=== PATIENT | male | born 1955 | race Caucasian/White ===

== ENCOUNTER → 2017-10-15 | Outpatient (CLI) | payer BC ==
[~2017-10-15] MED LIST: ALBU1AER INH; ASPI-146 PO; COMMODE 3-IN-11 MIS; ENOX40IN SQ; FLAX1000 PO; FLUTI44I INH; NORC5TAB PO; VENTAER INH; WALKER WHEELS/F1 MIS; [UNRECOGNIZED DRUG - CODE] INH
== END ==
LOC: CPRE 11:20
PROVIDERS: ATTEND Orthopaedic Surgery
DX: M16.11 Unilateral primary osteoarthritis, right hip (principal)

== ENCOUNTER 2017-10-27 05:31 | Inpatient (IN) | payer BC ==
[~2017-10-27] VITALS: Ht 185.4 cm; Wt 89.7 kg
[~2017-10-27 05:31] MED LIST changes: -ASPI-146 PO; -COMMODE 3-IN-11 MIS; -ENOX40IN SQ; -NORC5TAB PO; -WALKER WHEELS/F1 MIS
[2017-10-27] MEDS ORDERED: HYDROmorphone HCL PF 2 MG/ML VIAL ONE (05:52)
[2017-10-27] MEDS ORDERED: ACETAMINOPHEN 1000 MG/100 ML 100 ML IV ONE (05:52)
[2017-10-27] MEDS ORDERED: POVIDONE IODINE 5% (ANTISEPSIS KIT) 4 APPLICATIONS EACH NARE PRN (06:00)
[2017-10-27] MEDS ORDERED: SODIUM CHLORID 0.9% 500 ML IV PRN (06:00)
[2017-10-27] MEDS ORDERED: METOPROLOL TARTRATE 25 MG TAB PO PRN (06:00)
[2017-10-27] MEDS ORDERED: VANCOMYCIN 1000 MG/NS 250 ML (for <70 kg) IV SCH ×2 (06:00)
[2017-10-27] MEDS ORDERED: DEXAMETHASONE SOD PHOS 20 MG/5 ML VIAL IV SCH (06:00)
[2017-10-27] MEDS ORDERED: LACTATED RINGER'S 1000 ML IV PRN (06:00)
[2017-10-27] MEDS ORDERED: ceFAZolin 2 GM PREMIX 50 ML IV SCH (06:00)
[2017-10-27] MEDS ORDERED: INSULIN HUMAN REGULAR 1,000 UNITS/10 ML VIAL SQ PRN (06:00)
[2017-10-27] MEDS ORDERED: POVIDONE IODINE 7.5% SCRUB 118 ML BOTTLE TOPICAL SCH (06:00)
[2017-10-27] MEDS ORDERED: CHLORHEXIDINE GLUCONATE 2 % 1 PACK (2 CLOTHS) TOPICAL PRN (06:00)
[2017-10-27] MEDS ORDERED: GENTAMICIN SULFATE 80 MG/2 ML VIAL ONE (06:20)
--- NOTE | 2017-10-27 06:47 | HHI.DCPOC ---
Discharge Care Plan Diagnosis: (1) Osteoarthritis of right hip (2) Status post total hip replacement, right Your Health Problems Are: Difficulty with ADL Goals to Promote Your Health * To prevent worsening of your condition and complications * To maintain your health at the optimal level Directions to Meet Your Goals Take your medications as prescribed Follow your dietary instruction Follow activity as directed Keep your appointments as scheduled Take your immunizations and boosters as scheduled If your symptoms worsen call your PCP, if no PCP go to Urgent Care Center or Emergency Room Smoking is Dangerous to Your Health. Avoid second hand smoke Call the 24-hour hour crisis hotline for domestic abuse at Jass Springer Oct 27, 2017 06:47
--- NOTE | 2017-10-27 06:51 | HHI.FF ---
Face to Face Verification Diagnosis: (1) Osteoarthritis of right hip (2) Status post total hip replacement, right Physical Therapy Gait training, Transfer training, bed to chair Hip: Total hip Right LE Weight Bearing: WB as tolerated Right LE Range of Motion: Active ROM Nursing Nursing: Audi guillaume Dressing Changes: Do not change dressing Additional Instructions First dressing change in the office I have seen patient German Lopez on 10/27/17. My clinical findings support the need for the requested home health care services because: Limited ability to care for self High risk of falls I certify that my clinical findings support that this patient is homebound because: Post-op weakness Unsteady gait/balance Jass Springer Oct 27, 2017 06:51
[2017-10-27] MEDS ORDERED: COMMODE 3-IN-11 MIS (06:53)
[2017-10-27] MEDS ORDERED: WALKER WHEELS/F1 MIS (06:53)
[2017-10-27] MEDS ORDERED: EXPAREL PERI-ARTICULAR INJECTION (TOTAL VOL. 60 ML) P-ARTICULR SCH ×2 (07:00)
[2017-10-27] MEDS ORDERED: TRANEXAMIC ACID INJ 875 MG in SODIUM CHLORIDE 0.9% INJ 100 ML IV SCH ×2 (07:00→10:00)
--- NOTE | 2017-10-27 08:35 | PD.OP ---
cc: Bala Sanchez MD Operative Report Date of Surgery: Oct 27, 2017 Preoperative Diagnosis: Right hip severe osteoarthritis Postoperative Diagnosis: Same Procedure: Right total hip arthroplasty Anesthesia: Gen. Surgeon: Bala Sanchez [employer] Department Chair(s): KIERA Ray The surgical procedure was assisted by my Advanced Registered Nurse Practitioner. My PROFESSOR OF PHYSICAL EDUCATION presence was necessary throughout this case for the manipulation and positioning of the surgical extremity. My PROFESSOR OF PHYSICAL EDUCATION was assisting me throughout the duration of this procedure. The skill set of an Advance Registered Nurse Practitioner was medically necessary to complete this procedure. During the surgical case, the patient services technician was working at the back table and the Advance Registered Nurse Practitioner was directly assisting me. Operation and Findings: IMPLANT DESCRIPTION: 1. [place] Gription Cup, acetabular size 54. 2. [place] AltrX polyethylene, neutral. 4. [place] femoral stem size 13, no collar, standard offset. 5. Femoral head/neck ceramic, 36, +1.5. ESTIMATED BLOOD LOSS: 200 cc. JUSTIFICATION FOR PROCEDURE: The patient has end-stage osteoarthritis to the hip. There is an attached conservative measures pathway form in the chart that describes the nonoperative measures that were undertaken prior to consideration of surgical management. The patient understood the risks and benefits of surgical management. See my office notes for further details. PROCEDURE: The patient was brought back to the operative theatre. Adequate anesthesia was obtained. The patient received intravenous vancomycin and Ancef. The patient was carefully placed on the operative table. The lower extremity was prepped and draped in the usual sterile fashion. Fluoroscopic images were obtained. We made a standard anterior incision over the hip. We dissected through the TFL fascia, exposing the anterior capsule. Arthrotomy was performed in a T-shaped fashion. The capsule was tagged with a #2 FiberWire. End-stage arthritis was identified. Osteotomy was performed through the femoral neck exposing the acetabulum. Remnants of the labrum were resected and osteophytes were removed. We sequentially reamed the acetabulum. We trialed the hip and placed the final cup into position. This was done under fluoroscopic guidance to obtain the appropriate inclination and anteversion. A manhole cover was placed into the acetabular component. We then placed the final polyethylene into position and confirmed that it was well seated. Capsular attachments on the calcar and the inner aspect of the greater trochanter were resected. On the proximal aspect of the femur we used a rongeur , box osteotome, canal finder, sequential broaches and lateralizing rasp. We calcar planed the proximal femur. Then thoroughly irrigated the wound. We trialed the hip with the appropriate size stem. We placed the final stem in to position and trialed again. The hip was stable while it was externally rotated 70 degrees when the leg was lowered to the floor. The final head was applied, and final fluoroscopic images were obtained. The wound was thoroughly irrigated again. Interarticular injection of liposomal bupivacaine was given. The capsule was closed with #2 FiberWire and #1 Vicryl. The deep fascia was closed with a #2 Stratafix, followed by 2-0 Vicryl in the skin and Dermabond dressing. Postop plan is to weight-bear as tolerated. DVT prophylaxis will be performed with Frank, JAYLYN gonzalez, early mobilization, and Lovenox followed by aspirin. Bala Sanchez MD Oct 27, 2017 08:35
[2017-10-27] MEDS ORDERED: NORC5TAB PO (08:37)
[2017-10-27] MEDS ORDERED: ENOX40IN SQ (08:37)
[2017-10-27] MEDS ORDERED: ASPI-146 PO (08:37)
[2017-10-27] MEDS ORDERED: diphenhydrAMINE HCL 50 MG/ML VIAL IV PUSH PRN (08:45)
[2017-10-27] MEDS ORDERED: BISACODYL 10 MG SUPP RECTAL PRN (08:45)
[2017-10-27] MEDS ORDERED: ALUMINUM/MAGNESIUM/SIMETH 30 ML CUP PO PRN (08:45)
[2017-10-27] MEDS ORDERED: NALOXONE HCL 0.4 MG/ML AMP IV PUSH PRN (08:45)
[2017-10-27] MEDS ORDERED: ZOLPIDEM TARTRATE 5 MG TAB PO PRN (08:45)
[2017-10-27] MEDS ORDERED: ACETAMINOPHEN/HYDROcodone 325 MG/5 MG TAB PO PRN (08:45)
[2017-10-27] MEDS ORDERED: MAGNESIUM HYDROXIDE SUSP 30 ML CUP PO PRN (08:45)
[2017-10-27] MEDS ORDERED: ONDANSETRON HCL 4 MG/2 ML VIAL IVP PRN (08:45)
[2017-10-27] MEDS ORDERED: Post-op Orders (for Pharmacy) XX ONE (08:57)
[2017-10-27] MEDS ORDERED: DO NOT ADM ANY ANTICOAGULANT DRUGS PRN (08:57)
[2017-10-27] MEDS: SODIUM CHLOR 0.9% 1000 ML INJ 1,000 ML IV SCH (09:00)
[2017-10-27] MEDS: FLUTICASONE PROPIONATE 44 MCG/ACT 10.6 GM INHALER INH SCH (09:00)
[2017-10-27] MEDS ORDERED: *morphine SULFATE 8 MG/ML PERIprocedure ONLY ONE ×3 (09:11→09:43)
--- NOTE | 2017-10-27 09:46 | RADRPT ---
EXAM DATE/TIME: 10/27/2017 07:08 [facility] COMPARISON: No previous studies available for comparison. INDICATIONS : Right total hip replacement. MEDICAL HISTORY : None. SURGICAL HISTORY : None. ENCOUNTER: Initial ACUITY: 1 day PAIN SCORE: Non-responsive. LOCATION: Right Hip CONCLUSION: Fluoroscopic images right hip demonstrates right hip arthroplasty. No hardware loosen ing or new fracture. Brodie Nicole MD on October 27, 2017 at 9:44 Board Certified Radiologist. This report was verified electronically.
[2017-10-27] MEDS ORDERED: *HYDROmorphone PF 1 MG VIAL PERIprocedural Use ONLY ONE (09:56)
--- NOTE | 2017-10-27 10:04 | RADRPT ---
EXAM DATE/TIME: 10/27/2017 09:32 [facility] COMPARISON: HIP RIGHT (AP&LAT 2/3VWS) WO AP PELVIS, October 27, 2017, 7:08. INDICATIONS : Post op right hip surgery MEDICAL HISTORY : None. SURGICAL HISTORY : None. ENCOUNTER: Initial ACUITY: 1 day PAIN SCORE: 10/10 LOCATION: Right hip and pelvis FINDINGS: The patient is post right hip arthroplasty. Orthopedic hardware is in excellent position. The alignme nt is good. The osseous structures are otherwise intact. CONCLUSION: The right hip arthroplasty is in excellent position. Jass Estrella MD on October 27, 2017 at 10:01 Board Certified Radiologist. This report was verified electronically.
[2017-10-27 13:21] VITALS: BP 133/81; PULSE 90; RESP 18; TEMP 96.6; O2SAT 94
[2017-10-27] MEDS: MORPHINE SULFATE 4 MG/ML INJ IV PUSH PRN (13:22)
--- NOTE | 2017-10-27 14:17 | PD.CONS ---
HPI Service [facility] Consult Requested By Primary Care Physician Alvin Jeffery MD Diagnoses: History of Present Illness Mr. Lopez is a 62-year-old male. He came in for a right hip replacement surgery. He has osteoarthritis at baseline and has had a couple injuries of his right hip. At baseline he has asthma but no other medical conditions. He takes albuterol on as as-needed basis and fluticasone on a daily basis for maintenance. At this point he has no exacerbations of his asthma. He has been ambulatory postop and is doing well thus far. No medical concerns. Review of Systems Constitutional: DENIES: Diaphoretic episodes, Fever, Chills, Night Sweats Eyes: DENIES: Blurred vision, Diplopia, Eye inflammation Ears, nose, mouth, throat: DENIES: Tinnitus, Hearing loss, Vertigo Respiratory: DENIES: Cough, Wheezing, Shortness of breath Cardiovascular: DENIES: Chest pain, Palpitations, Syncope Gastrointestinal: DENIES: Abdominal pain, Black stools, Bloody stools Musculoskeletal: COMPLAINS OF: Joint pain, Stiffness, DENIES: Muscle aches Integumentary: DENIES: Abnormal pigmentation, Nail changes, Pruritus, Rash Hematologic/lymphatic: DENIES: Bruising, Lymphadenopathy Immunologic/allergic: DENIES: Eczema, Urticaria Neurologic: COMPLAINS OF: Abnormal gait, DENIES: Headache, Paresthesias Psychiatric: DENIES: Anxiety, Confusion, Hallucinations Past Family Social History Allergies: Coded Allergies: theophylline (Verified Adverse Reaction, Unknown, RAPID HEART RATE, ) Past Medical History Asthma Past Surgical History Right inguinal hernia repair Left inguinal hernia repair Right hip surgery (today) Reported Medications Reported Meds & Active Scripts Active Enoxaparin Inj (Enoxaparin Sodium) 40 Mg/0.4 Ml Syr 40 Mg SQ DAILY Start Aspirin after Lovenox is completed. Ecotrin Regular Strength (Aspirin) 325 Mg Tabdr 325 Mg PO DAILY Start Aspirin after Lovenox is completed. [place] (Hydrocodone-Acetaminophen) 5 Mg-325 Mg Tab 1-2 Tab PO Q4H PRN Reported Flaxseed Oil (Flaxseed (Linseed)) 1,000 Mg Cap 1,000 Cap PO TID Flovent Hfa 10.6 GM Inh (Fluticasone Propionate) 44 Mcg/Act Inh 1 Puff INH DAILY Use daily at the same time. Ventolin Hfa 18 GM Inh (Albuterol Sulfate) 90 Mcg/Act Aer 1 Puff INH Active Ordered Medications Administered Medications Medications (Trade) Dose Ordered Sig/Juliann Route PRN Reason Start Time Stop Time Status Last Admin Dose Admin Povidone Iodine (Betadine 5% Antisepsis Kit) 1 applic BUSINESS SERVICES DIRECTOR PRN EACH NARE SEE LABEL COMMENTS 10/27/17 06:00 10/30/17 05:59 10/27/17 06:00 Chlorhexidine Gluconate (Chlorhexidine 2% Cloth) 3 pack BUSINESS SERVICES DIRECTOR PRN TOPICAL SEE LABEL COMMENTS 10/27/17 06:00 10/30/17 05:59 10/27/17 05:50 Vancomycin HCl 1000 mg/Sodium Chloride 250 ml @ 250 mls/hr BUSINESS SERVICES DIRECTOR IV 10/27/17 06:00 10/30/17 05:59 10/27/17 06:25 Sodium Chloride 1,000 ml @ 100 mls/hr Q10H IV 10/27/17 08:32 10/27/17 09:00 Cefazolin Sodium 1000 mg/Sodium Chloride 100 ml @ 200 mls/hr Q6H IV 10/27/17 12:00 10/28/17 00:29 10/27/17 11:59 Morphine Sulfate (Morphine Inj) 2 mg Q3H PRN IV PUSH pain>5 IF NOT TOLERATING PO 10/27/17 08:45 10/27/17 13:22 Family History Alzheimer's disease in mother Social History No history of smoking No history of alcohol abuse No history of illicit drug abuse Physical Exam Vital Signs Vital Signs Date Time Temp Pulse Resp B/P (MAP) Pulse Ox O2 Delivery O2 Flow Rate FiO2 10/27/17 13:21 96.6 90 18 133/81 (98) 94 10/27/17 13:04 Nasal Cannula 2.00 10/27/17 12:15 97.8 90 16 107/69 (82) 95 Nasal Cannula 2 10/27/17 11:15 89 16 120/76 (91) 96 Nasal Cannula 2 10/27/17 10:15 81 16 98/57 (71) 94 Nasal Cannula 2 10/27/17 10:00 83 16 112/66 (81) 94 Nasal Cannula 3 10/27/17 09:45 81 16 116/65 (82) 95 Nasal Cannula 3 10/27/17 09:30 80 16 115/65 (82) 95 Nasal Cannula 3 10/27/17 09:15 81 16 114/69 (84) 95 Nasal Cannula 3 10/27/17 09:00 80 16 111/70 (84) 95 Nasal Cannula 3 10/27/17 08:56 97.9 82 16 110/68 (82) 90 Nasal Cannula 3 10/27/17 06:26 98.6 93 20 138/87 (104) 95 Physical Exam GENERAL: NAD, A&Ox3 HEAD: Normocephalic. NECK: Supple, trachea midline. No lymphadenopathy. EYES: No scleral icterus. No injection or drainage. CARDIOVASCULAR: Regular rate and rhythm without murmurs, gallops, or rubs. RESPIRATORY: Breath sounds equal bilaterally. No accessory muscle use. GASTROINTESTINAL: Abdomen soft, non-tender, nondistended. MUSCULOSKELETAL: No cyanosis, or edema. Bandaged right hip, limited range of motion of right hip postop. SKIN: Warm and dry. NEURO: No focal neurological deficitis. Imaging Last Impressions Hip and Pelvis X-Ray 10/27/17 0832 Signed Impressions: Service Date/Time: Friday, October 27, 2017 09:32 - CONCLUSION: The right hip arthroplasty is in excellent position. Jass Estrella MD Hip X-Ray 10/27/17 0000 Signed Impressions: Service Date/Time: Friday, October 27, 2017 07:08 - CONCLUSION: Fluoroscopic images right hip demonstrates right hip arthroplasty. No hardware loosening or new fracture. Brodie Nicole MD Assessment and Plan Problem List: (1) Status post total hip replacement, right ICD Code: Z96.641 - Presence of right artificial hip joint (2) Osteoarthritis of right hip ICD Code: M16.11 - Unilateral primary osteoarthritis, right hip Assessment and Plan Assessment and plan 62-year-old male admitted for right hip surgery Osteoarthritis of right hip Status post total hip replacement at right Continue pain treatments Orthopedic surgeon following Continue physical therapy Medically clear for discharge from the patient is cleared by orthopedic surgeon Asthma Stable No exacerbation Continue baseline treatments Medically clear for discharge Problem Qualifiers (1) Osteoarthritis of right hip: Qualified Codes: M16.11 - Unilateral primary osteoarthritis, right hip Jass Perez MD Oct 27, 2017 14:17
[2017-10-27 14:37] VITALS: O2SAT 94
[2017-10-27 16:00] VITALS: BP 139/66; PULSE 95; RESP 18; TEMP 96.6; O2SAT 94
[2017-10-27] MEDS ORDERED: ACETAMINOPHEN 325 MG TAB PO PRN (17:45)
[2017-10-27 19:47] VITALS: O2SAT 95
[2017-10-27 20:00] VITALS: BP 122/76; PULSE 89; RESP 18; TEMP 97.7; O2SAT 93
[2017-10-27] MEDS ORDERED: BENZOCAINE-MENTHOL (SUGAR FREE) 15 MG-3.6 MG LOZENGE BUCCAL PRN (20:15)
[2017-10-28 00:13] VITALS: BP 110/69; PULSE 90; RESP 18; TEMP 97.4; O2SAT 94
[2017-10-28] MEDS: MORPHINE SULFATE 4 MG/ML INJ IV PUSH PRN (00:17)
[2017-10-28] MEDS: SODIUM CHLOR 0.9% 1000 ML INJ 1,000 ML IV SCH ×3 (03:00→14:32)
[2017-10-28] MEDS: ACETAMINOPHEN/HYDROcodone 325 MG/5 MG TAB PO PRN ×3 (03:03→13:39)
[2017-10-28 04:16] VITALS: BP 130/75; PULSE 91; RESP 18; TEMP 97; O2SAT 94
[2017-10-28] MEDS ORDERED: DEXAMETHASONE SOD PHOS 20 MG/5 ML VIAL IV ONE (07:45)
[2017-10-28 08:00] VITALS: BP 116/71; PULSE 96; RESP 17; TEMP 97.7; O2SAT 94
[2017-10-28] MEDS ORDERED: ENOXAPARIN SODIUM 40 MG/0.4 ML SYRINGE SQ SCH (08:00)
[2017-10-28 08:04] LABS: HEMATOCRIT 35.4 % (39.0-51.0); MEAN CELL VOLUME 86.9 FL (80.0-100.0); MEAN CORPUSCULAR HEMOGLOBIN 28.8 PG (27.0-34.0); MEAN CORPUSCULAR HGB CONC 33.1 % (32.0-36.0); PLATELET COUNT 237 TH/MM3 (150-450); RED BLOOD COUNT 4.07 MIL/MM3 (4.50-5.90); RED CELL DISTRIBUTION WIDTH 14.4 % (11.6-17.2); REVIEW FLAG FINAL; WHITE BLOOD COUNT 10.4 TH/MM3 (4.0-11.0)
[2017-10-28] MEDS: FLUTICASONE PROPIONATE 44 MCG/ACT 10.6 GM INHALER INH SCH (09:00)
[2017-10-28 12:00] VITALS: BP 119/72; PULSE 95; RESP 17; TEMP 98; O2SAT 94
--- NOTE | 2017-10-28 12:57 | PD.ORT.PN ---
Subjective Post Op Day #: 1 Subjective Remarks The patient is OOB in chair with at bedside. Patient reports minimal pain and having to take minimal pain medication. Patient is ambulatory and wanting to go home with home health today. Objective Vitals Vital Signs Date Time Temp Pulse Resp B/P (MAP) Pulse Ox O2 Delivery O2 Flow Rate FiO2 10/28/17 12:00 98.0 95 17 119/72 (88) 94 10/28/17 08:00 97.7 96 17 116/71 (86) 94 10/28/17 04:16 97.0 91 18 130/75 (93) 94 10/28/17 00:13 97.4 90 18 110/69 (83) 94 10/27/17 20:00 97.7 89 18 122/76 (91) 93 10/27/17 19:47 95 21 10/27/17 16:00 96.6 95 18 139/66 (90) 94 10/27/17 14:37 94 Nasal Cannula 2.00 10/27/17 13:21 96.6 90 18 133/81 (98) 94 10/27/17 13:04 Nasal Cannula 2.00 I/O 10/27/17 10/27/17 10/27/17 10/28/17 10/28/17 10/28/17 07:00 15:00 23:00 07:00 15:00 23:00 Intake Total 1438 ml 240 ml 240 ml Output Total 150 ml Balance 1288 ml 240 ml 240 ml Intake Oral 480 ml 240 ml 240 ml IV Total 208 ml Other 750 ml Output Estimated Blood Loss 150 ml # Voids 1 3 2 # Bowel Movements 0 0 0 Result Diagram: 10/28/17 0653 Procedures Right JOVAN Objective Remarks The patient's dressing is C/D/I. EHL/TA/G intact. 2+ pedal pulse. + SILT. Calf is soft and nontender. Assessment & Plan Ortho Post Op Day #: 1 Problem List: Assessment and Plan POD #1: Right JOVAN 1. Lovenox followed by ASA for DVT prophylaxis 2. WBAT RLE 3. Ice to the right hip PRN 4. Stable for discharge home with home health today 5. F/U in the office with Dr. Sanchez or KIERA Santos as previously scheduled. Jass Springer Oct 28, 2017 12:56
[2017-10-28] MEDS ORDERED: MULTIVITAMINS/MINERALS THERAPEUTIC TAB PO SCH (21:00)
[2017-10-28] MEDS ORDERED: DOCUSATE SODIUM 100 MG CAP PO SCH (21:00)
--- NOTE | 2017-10-29 12:33 | HHI.DS ---
Discharge Summary Admission Date Oct 27, 2017 at 05:31 Discharge Date: Oct 28, 2017 Admitting Diagnosis OA of the right hip Status post total hip replacement, right Diagnosis: (1) Osteoarthritis of right hip Diagnosis: Principal ICD Codes: M16.11 - Unilateral primary osteoarthritis, right hip (2) Status post total hip replacement, right Diagnosis: Principal ICD Codes: Z96.641 - Presence of right artificial hip joint Procedures Right JOVAN Brief History This is a 62 year old male patient with severe OA of the right hip CBC/BMP: 10/28/17 0653 Significant Findings Laboratory Tests Test 10/28/17 06:53 Red Blood Count 4.07 MIL/MM3 (4.50-5.90) Hemoglobin 11.7 GM/DL (13.0-17.0) Hematocrit 35.4 % (39.0-51.0) Mean Platelet Volume 6.7 FL (7.0-11.0) PE at Discharge The patient's dressing is C/D/I. EHL/TA/G intact. 2+ pedal pulse. + SILT. Calf is soft and nontender. Hospital Course The patient was admitted to the hospital for severe OA of the right hip to have a right JOVAN. The patient's surgery went well without complication. The patient is WBAT. The patient is on a regular diet. The patient is on Lovenox followed by ASA for DVT prophylaxis. The patient was discharged home with home health and will f/u in the office with Dr. Sanchez or KIERA Santos as previously scheduled. Pt Condition on Discharge: Stable Discharge Disposition: Disch w/ Home Health Serv Discharge Instructions Diet Instructions: As Tolerated, No Restrictions Activities You Can Perform: Weight Bearing as Yudi Activities to Avoid: Strenuous Activity Follow up Referrals: Orthopedics with Bala Sanchez MD New Medications: Aspirin (Ecotrin Regular Strength) 325 Mg Tabdr 325 MG PO DAILY for Prevent Blood Clot, #30 TAB 0 Refills Start Aspirin after Lovenox is completed. Commode 3-in-1 (Commode 3-in-1) 1 Mis Mis EA .ROUTE DIRECTED, #1 0 Refills Enoxaparin Inj (Enoxaparin Inj) 40 Mg/0.4 Ml Syr 40 MG SQ DAILY for Blood Clot Prevention, #10 SYRINGE 0 Refills Start Aspirin after Lovenox is completed. Hydrocodone-Acetaminophen ([place]) 5 Mg-325 Mg Tab 1-2 TAB PO Q4H PRN for PAIN, #60 TAB 0 Refills Walker with Front Wheels (Walker with Front Wheels) 1 Mis Mis EA .ROUTE DIRECTED, #1 0 Refills Continued Medications: Albuterol 18 GM Inh (Ventolin Hfa 18 GM Inh) 90 Mcg/Act Aer 1 PUFF INH, #1 INHALER 0 Refills Flaxseed (Linseed) (Flaxseed Oil) 1,000 Mg Cap 1000 CAP PO TID Fluticasone 10.6 GM Inh (Flovent Hfa 10.6 GM Inh) 44 Mcg/Act Inh 1 PUFF INH DAILY for Asthma Management, #1 INHALER 0 Refills Use daily at the same time. Jass Springer EMERGENCY OPERATOR Oct 29, 2017 12:33
== END 2017-10-28 15:35 | disposition home health service (06) | DRG 470 ==
LOC: HSDI 05:31 → N06A 13:00
PROVIDERS: ADMIT Orthopaedic Surgery; ATTEND Orthopaedic Surgery
PROC: 0SR904A Replacement of Right Hip Joint with Ceramic on Polyethylene Synthetic Substitute, Uncemented, Open Approach (ICD-10-PCS; principal; 2017-10-27 06:45)
DX: M16.11 Unilateral primary osteoarthritis, right hip (principal); J45.909 Unspecified asthma, uncomplicated
CPT/HCPCS: 73502; 76000; 85027; 86850; 86900; 86901; 94150; C9290; J0131; J0690; J1100; J1170; J1580; J1650; J2270; J2405; J3370; J7030; J7050; J7120